=== PATIENT | male | born 1975 | race Caucasian/White ===

== ENCOUNTER 2019-03-24 02:17 | Inpatient (IN) ==
--- OUTSIDE RECORDS SUMMARY | 2019-03-24 04:52 | External Medical Summary | Continuity of Care Document ---
:1975 Author Name Aba Schreiber, Provider Address Unavailable Unavailable , Care Team Providers Name Role Phone David [email or web address] [email or web address] Derrick Mendoza PA-C Unavailable [email or web address] BAYRON VELARDE Unavailable Unavailable Unavailable Unavailable Unavailable Problems Candidiasis of mouth (112.0) (B37.0) Asthma, moderate persistent (493.90) (J45.40) Shortness of breath (786.05) (R06.02) Acute sinusitis (461.9) (J01.90) Acute bronchitis (466.0) (J20.9) Asthma (493.90) (J45.909) History of allergy (V15.09) (Z88.9) Earache (388.70) (H92.09) Chronic infection of sinus (473.9) (J32.9) Allergies and Adverse Reactions No Known Drug Allergies (Allergy) Medications Remeron 15 MG Oral Tablet; TAKE 1 TABLET AT BEDTIME. Start: 10-Nov-2018 Quantity: 15 Refills: 5 Breo Ellipta 200-25 MCG/INH Inhalation A erosol Powder Breath Activated; INHALE 1 PUFFS Daily Candie Castaneda Start: 11-Feb-2019 Quantity: 2 28 Inhaler Pack Refills: 0 predniSONE 10 MG Oral Tablet; Take 4 pil ls daily for 2 days, then 3 pills daily for 2 days, then 2 pills daily for 2 days, then 1 pill daily for 2 days. EMETERIO Mendoza Start: 08-Jan-2019 Quantity: 20 Refills: 2 Fluconazole 200 MG Oral Tablet; TAKE 1 TABLET TWICE DAILY. EMETERIO Rivero Start: 21-Jan-2019 Quantity: 28 Refills: 0 Ipratropium-Albuterol 0.5-2.5 (3) MG/3ML Inhalation Solution; USE 1 UNIT DOSE IN NEBULIZER 4 TIMES DAILY. EMETERIO Mendoza Start: 21-Jan-2019 Quantity: 2 60 x 3 ML Plas Cont Refills: 5 Clotrimazole 10 MG Mouth/Throat Jose L; ALLOW 1 TO DISSOLVE SLOWLY IN MOUTH 5 TIMES DAILY DIRECTED. EMETERIO Mendoza Start: 21-Jan-2019 Quantity: 50 Refills: 2 Nystatin [id number] UNIT/ML Mouth/Throat Lola pension; SWISH AND SWALLOW 6ML 4 TIMES DAILY. EMETERIO Mendoza Start: 18-Feb-2019 Quantity: 240 Refills: 0 Ventolin HFA 108 (90 Base) MCG/ACT Inhal ation Aerosol Solution; INHALE 2 PUFFS BY MOUTH EVERY 4 HOURS NEEDED Candie Castaneda Start: 22-Dec-2013 Quantity: 1 18 GM Inhaler Refills: 5 Stiolto Respimat 2.5-2.5 MCG/ACT Inhalation Aerosol So lution; 2 puffs daily. EMETERIO Mendoza Start: 08-Jan-2019 Quantity: 1 4 GM Inhaler Refills: 5 Procedures History of Arm Incision Status: Complete d History of Oral Surgery Tooth Extraction Status: Completed Immunizations Immunizations not documented Family History Unknown Family Member Family history of Heart Disease (V17.49) Status: Active Comments: Family History Social History - Smoking Status Former smoker Plan of Treatment Planned Encounters Appointment; Derrick Mendoza PA-C Start: 02-Apr-2019 15:30 Re quest Planned Observations Planned Goals not documented Results No Known Results Results not documented Encounters Appointment; Nani Razo M.D. 27-Feb-2019 11:00 Encounter Diagnosis: Problem not documented Appointment; David Castaneda M.D. 11-Feb-2019 15:30 Encounter Diagnosis: Problem not documented Appointment; David Castaneda M.D. 03-Feb-2019 9:00 Encounter Diagnosis: Problem not documented Appointment; Derrick Mendoza PA-C 21-Jan-2019 11:15 Encounter Diagnosis: Problem not documented Appointment; Derrick Mendoza PA-C 08-Jan-2019 10:30 Encounter Diagnosis: Problem not documented Appointment; Rosemarie King CRNP 10-Nov-2018 13:30 Encounter Diagnosis: Problem not documented Appointment; Derrick Mendoza PA-C 18-Feb-2018 9:00 Encounter Diagnosis: Problem not documented Appointment; Derrick Mendoza PA-C 13-[place]-2019 15:30 Encounter Diagnosis: Problem not documented
[2019-03-24] MEDS ORDERED: CEFEPIME 2,000 MG in SYRINGE 7.5 ML IV SCH (06:05)
[2019-03-24] MEDS ORDERED: NITROGLYCERIN SL 0.4 MG/TAB TAB SL PRN (06:05)
[2019-03-24] MEDS ORDERED: ONDANSETRON INJ 2 MG/ML 2 ML VIAL IV PRN (06:05)
[2019-03-24] MEDS: ACETAMINOPHEN 325 MG TAB PO PRN (06:21)
[2019-03-24] MEDS: HYDROmorphone INJ 0.5 MG/0.5 ML SYR IV PRN ×5 (06:27→20:33)
[2019-03-24] MEDS: SODIUM CHLORIDE 0.9% 1000ML 1,000 ML IV SCH ×2 (06:27→18:54)
[2019-03-24] MEDS: DOXYCYCLINE HYCLATE 100 MG in DEXTROSE 5% 100 ML IV SCH ×2 (06:47→19:41)
[2019-03-24] MEDS: PATIENT'S HEIGHT AND/OR WEIGHT NEEDED SCH ×3 (07:28→09:40)
--- NOTE | 2019-03-24 07:51 | History and Physical Report ---
DATE OF ADMISSION: 03/24/2019 CHIEF COMPLAINT: Severe headache. HISTORY OF PRESENT ILLNESS: This is a 44-year-old male with past medical history significant for asthma, moderate, persistent, history of thrush in the past, was transferred from the [facility] because of severe headache. The patient noticed since last Saturday evening he was having severe headaches. He went to the [facility] 3 times since then. In the shower,on Saturday he noticed he thought a bug bite on his left third toe. There was some whitish head on it, he tried to drain it, but nothing came out and says since then he is having severe headache. He thought at home he had temperature of 103, but he took Tylenol and went to [place] and the temperature was 99. Initially, they gave pain medication and it helped and he went home, and within a few hours, he went back to the hospital again. At that time, CT of the head was done which was unremarkable. Labs were unremarkable. He was sent back home on po antibiotics.. Last night again, he went back to the [facility] with same complaints. There was no neck stiffness, no pain in the neck. But having severe right ear pain.Again, a CT of the head with contrast was done which was unremarkable.He also complains of some epigastric abdominal pain. CT of the abdomen and pelvis was also done which were unremarkable. Lactic acid was normal. Temperature was 99. Vitals were stable. All the labs were unremarkable, so at that time they thought he needs neurology evaluation and he was sent to [facility]. The patient has a severe headache and has photophobia, nausea and epigastric abdominal discomfort. Denies any cough, no blurred vision, has right earache, no runny nose, no sore throat, no difficulty swallowing. Appetite is not good since last 1 or 2 days. No diarrhea, no constipation, no blood in the stools, no black stools. No burning micturition, no hematuria, no swelling in the legs. He has very mild erythematous change in the left third toe. Requesting for pain medications. Neck is supple. He says this year, he has 3 tick bites. Last was 1 month ago. At that time, he checked for Lyme, it was negative. He says Lyme screen was done in the [facility], but the results were not back. ALLERGIES: TO POLLEN. PAST MEDICAL HISTORY: As mentioned above. PAST SURGICAL HISTORY: EGDs, oral surgery for tooth extraction, distal radius fracture closed. MEDICATIONS: Albuterol p.r.n., Breo Ellipta inhalation daily, Flonase daily, Xyzal oral daily. FAMILY HISTORY: Significant for uncle had colon cancer at age of 60. Uncle has diabetes. Maternal grandfather has SD, CABG. SOCIAL HISTORY: Single, former smoker, started in 2003. Smoked 0.1 pack a day for 5 years. Alcohol, 2.5 ounce total alcohol per week. No drug use. REVIEW OF SYMPTOMS: As per HPI. Rest of review of symptoms is negative. PHYSICAL EXAMINATION: GENERAL: The patient is moderate build, not in acute distress, seemed to be in pain. VITAL SIGNS: Temperature 36.8, pulse 55, respiratory rate 18, blood pressure 130/83, oxygen 97% room air. HEENT: No pallor, no icterus. Pupils equal, round, and reactive.Right ear Auditory canal erythematous and friable tissue? NECK: No JVD, no neck masses, no carotid bruits. Neck is supple. CARDIOVASCULAR: S1, S2 heard, regular rate and rhythm. No murmur, no gallop. RESPIRATORY SYSTEM: Normal AP diameter. No accessory muscle use. No wheezing, no crackles. ABDOMEN: Mildly positive tenderness, no guarding, no rigidity. No distention. CENTRAL NERVOUS SYSTEM: Cranial nerves II-XII grossly intact. Nonfocal. EXTREMITIES: No edema, very mild erythema involving medial aspect of left third toe.. LABORATORY DATA: Labs done at [facility] show sodium 136, potassium 3.8, chloride 100, bicarbonate 23, BUN 15, creatinine 1.3, serum glucose 112, calcium 9.2, total bilirubin 0.5. Aminotransferase is 62. Alkaline phosphatase is 94. Lactic acid 2.1, but repeat lactic acid is 1.0. Prothrombin time 13.2, INR 1.1, amylase 40, lipase 52, lipase 95. Urine drug screen negative except for marijuana. WBC 9.8, hemoglobin 15.4, hematocrit 45.3, platelets 153. Rapid flu test negative. Urinalysis negative. CT of abdomen and pelvis, unremarkable as per report. ASSESSMENT AND PLAN: This is 44-year-old male who presents with severe intractable headaches. 1. Severe intractable headache. questionable fever. Photophobia and nausea. Hemodynamically stable. Labs were okay done at [facility]. CT of the head was unremarkable as per report, but he was transferred here for neurology evaluation. The patient is having photophobia, some nausea. He thinks he had 3 tick bites this year and last one is one month ago and initial Lyme screen was negative and he thought he had a bug bite in his third left toe. We will again do Lyme screen. We will follow the CBC, CMP, and lactic acid. We will place him on IV fluids, empirically start him on IV doxycycline and IV Rocephin.. MRI and MRA of the head and consult neuro for further recommendations. Pain control.No obvious meningeal signs. Will follow cultures.LP as per neurology. 2. Right ear infection. Antibiotics as above. Consult ENT. 2. Asthma, home inhalers. 3. Deep venous thrombosis prophylaxis, SCDs for now. 4. Disposition: Close monitoring in the med/surg tele. Level 1 full code. MTDD
[2019-03-24] MEDS ORDERED: GADOBUTROL 65ML VIAL IV PRN (08:04)
--- NOTE | 2019-03-24 08:08 | Magnetic Resonance Report ---
MR angio head wo con CLINICAL HISTORY: 44 years-old Male presenting with migraines for 3 days, possible insect bite, sever e nausea and vomiting. TECHNIQUE: MR angiography of the head was performed without the use of intravenous contrast using 3-D [id number] technique. 3-D volumetric and/or maximum intensity projection (MIP) images were subse quently reconstructed for review. IV contrast: None. COMPARISON: None. FINDINGS: Localizer images: Unremarkable. Anterior circulation: Intracranial portions of the internal carotid arteries patent to the level of t he termini. Anterior cerebral arteries patent with a trifurcation variant pattern. Middle cerebral ar teries patent. Anterior communicating artery patent. Posterior circulation: Left dominant vertebral artery. Intradural portions of the vertebral arteries patent. Posterior inferior cerebellar arteries patent. Basilar artery patent. Anterior inferior cereb ellar arteries poorly visualized. Superior cerebellar arteries patent. Posterior cerebral arteries pa tent. Right posterior communicating artery (P-comm) patent. Left P-comm hypoplastic or aplastic. IMPRESSION: 1. No significant stenosis, aneurysm, or focal vessel occlusion. Electronically signed by: Janes Whittaker M.D. 03/24/2019 8:06 AM
--- NOTE | 2019-03-24 08:31 | Magnetic Resonance Report ---
MR brain wo/w con HISTORY: 44 years-old Male severe headache, acute headache. COMPARISON: MRA of the head of same day. TECHNIQUE: Multiplanar multisequence MRI of the brain was obtained both with and without the use of 8 .3 mL Gadavist. FINDINGS: Large srruy-cm-dwyy lead nitrate processor localizer images demonstrate no gross extracranial abnormality. There is no restricted diffusion to suggest acute or subacute infarction. There is no acute intracranial hemorrh age, midline shift, abnormal extra-axial collections, hydrocephalus or intracranial mass. There are n o significant T2/FLAIR signal abnormalities about the brain parenchyma. Midline structures including the corpus callosum, brainstem, optic chiasm, pituitary and pineal glands are unremarkable on the sag ittal T1 series. No cerebellar tonsillar herniation. No abnormal intra-axial or extra-axial enhanceme nt. Major flow voids at the level of the skull base appear to be patent. Mild to moderate polypoid mucosa l thickening of the maxillary and frontal sinuses. Moderate mucosal thickening of the ethmoid air lucy ls with complete opacification of the left sphenoid sinus. Incidental note is made of disconjugate ga ze. The soft tissues and calvarium are unremarkable. Trace mastoid effusions. IMPRESSION: 1. No acute intracranial abnormality identified. 2. No abnormal enhancement. 3. Paranasal sinus disease as above. The above report was generated using voice recognition software. It may contain grammatical, syntax o r spelling errors. Dictated: 03/24/2019 8:22 AM Transcribed: 03/24/2019 8:30 AM Antionette [id number] Electronically signed by: Renard Llanos M.D. 03/24/2019 9:20 AM
[2019-03-24] MEDS ORDERED: cefTRIAXone SODIUM 2,000 MG in DEXTROSE 5% 50 ML IV SCH (09:00)
[2019-03-24] MEDS ORDERED: FLUTICASONE PROPIONATE NA SPR 16 GM BTL NAE SCH (09:00)
[2019-03-24 09:25] LABS: Basophils # (auto) 0.04 K/uL (0-0.2); Basophils % (auto) 0.7 %; Eosinophils % (auto) 1.7 %; Hematocrit (blood only) 38.4 % (42-52); Hemoglobin 13.7 g/dL (14.0-18.0); Immature Granulocytes # (auto) 0.01 K/uL (0.00-0.02); Immature Granulocytes % (auto) 0.2 %; Lymphocytes # (auto) 2.56 K/uL (1.2-3.4); Lymphocytes % (auto) 43.2 %; Mean Corpuscular Hgb Conc 35.7 g/dL (32-36); Mean Corpuscular Volume 83.7 fL (80-100); Mean Platelet Volume 11.5 fL (7.4-10.4); Monocytes # (auto) 0.85 K/uL (0.11-0.59); Monocytes % (auto) 14.4 %; Neutrophils # (auto) 2.36 K/uL (1.4-6.5); Neutrophils % (auto) 39.8 %; Platelet Count 117 K/uL (130-400); RDW Coefficient of Variation 12.6 % (11.5-14.5); RDW Standard Deviation 38.1 fL (36.4-46.3); Red Blood Count 4.59 M/uL (4.7-6.1); White Blood Count 5.92 K/uL (4.8-10.8)
[2019-03-24 09:39] LABS: INR 1.1 (0.9-1.1); Partial Thromboplastin Ratio 1.2; Partial Thromboplastin Time 31.6 Seconds (21.0-31.0)
[2019-03-24] MEDS: LORATADINE 10 MG TAB PO SCH (09:45)
[2019-03-24] MEDS: FAMOTIDINE 20 MG in SYRINGE 3 ML IV SCH ×2 (09:45→21:25)
[2019-03-24 09:51] LABS: Albumin Level 3.2 gm/dl (3.4-5.0); BUN Creatinine Ratio 15.9 (10-20); Calcium 8.4 mg/dl (8.5-10.1); Creatinine Clr Calc Pharmacy 126.5 ml/min; Est GFR (African American) 127.1; Est GFR (Non-African American) 109.6; Magnesium 2.3 mg/dl (1.8-2.4); Potassium 3.4 mmol/L (3.5-5.1)
[2019-03-24 09:53] LABS: Bilirubin,Total 0.5 mg/dl (0.2-1); Globulin 3.2 gm/dl (2.5-4.0); Total Protein 6.4 gm/dl (6.4-8.2)
--- NOTE | 2019-03-24 10:04 | XRay Report ---
XR chest 1V portable CLINICAL HISTORY: 44 years-old Male presenting with fever. TECHNIQUE: Portable upright AP view of the chest was obtained. COMPARISON: 02/03/2019 and CTA chest from 2012. FINDINGS: Cardiomediastinal silhouette normal. Lungs are hyperinflated. No focal opacity. No pleural effusion o r pneumothorax. Posterior matter deformity of the left clavicle suspected. Multiple old left rib frac tures noted. Upper abdomen normal. IMPRESSION: 1. Findings suggest emphysema. No focal infiltrate to suggest pneumonia. 2. Abnormal appearance of the left clavicle, which may be posttraumatic in etiology. The appearance is altered from prior CTA in 2012. This may suggest re-injury among other etiologies. Correlate clini handy. Electronically signed by: Janes Whittaker M.D. 03/24/2019 10:03 AM
[2019-03-24 10:15] LABS: Lyme Ab IgG w/WB Rflx Negative (Negative)
[2019-03-24 10:34] LABS: Lyme Ab IgM w/WB Rflx Positive (Negative)
--- NOTE | 2019-03-24 14:33 | Infectious Disease Consult ---
Date of Consultation March 24, 2019 Assessment & Plan (1) Headache: continue abx, agree with LP. follow cultures. suggest routine cultue, csf lyme pcr, rpr, csf vdrl. will follow. History of Present Illness Attending Physician: Micheal Valentine MD pt transferred from [facility] due to persistent hays. has been on ER multiple times for same, now transferred for neuro eval. In ER underwent MRI/MRA brain, normal. cxr with empysema. no cough, some sinus congestion, saw ENT and neuro earlier today, for LP. noted tick bites this year. lyme testing done recently, does not know results. started on ctx and doxy here, tolerating well. no f/c. still with hays, states pain meds not helping, no nuchal rigidity. wbc nml. afebile. In ER lyme screen + wb pending. platelets 117, LFTs normal. no rashes, no joint swelling, no myalgias, no cp, sob, cough, no n/v/d/abd pain, no gu symptoms. family at bedside. blood cultures pending. Allergies Allergy/AdvReac Type Severity Reaction Status Date / Time No Known Drug Allergies Allergy n/a Verified 02/03/19 08:20 Home Medications Home Medications Medication Instructions Recorded Confirmed Type albuterol sulfate 2 puff INHALATION Q6H PRN 02/02/19 02/03/19 History Breo Ellipta 1 puff INHALATION DAILY 03/24/19 03/24/19 History Claritin 10 mg PO DAILY 03/24/19 03/24/19 History Flonase Allergy Relief 1 spray NA DAILY 03/24/19 03/24/19 History Patient History Medical History Asthma (Acute) No significant past surgical history (Acute) Social History Preferred Language: Sami Communication Ability: Effective 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 Required: No Beliefs That Will Affect Care: None Current Living Situation: Alone Other Information That Helps Us Care for You: No Feels Safe at Home: Yes Safety Concerns: Feels Safe At This Time Smoking Status: Former smoker Second Hand Exposure: No Hx Alcohol Use: Yes Alcohol type: beer Hx Substance Use: No Review of Systems Review of Systems: All systems reviewed & are unremarkable except as noted in HPI & below Physical Exam Constitutional: WD/WN, vitals as above Eyes: PERRL, conjunctivae normal, anicteric sclerae ENMT: external ear and nose normal, oropharynx normal Neck: normal visual inspection no nuchal rigidity Respiratory: normal respiratory effort, lungs clear to auscultation Cardiovascular: RRR, no murmur, no edema Gastrointestinal (Abdomen): normal bowel sounds, soft, nontender, no hepatosplenomegaly Musculoskeletal: no cyanosis or clubbing, extremities motor strength 5/5 Skin: no rashes, warm and dry Psychiatric: A+Ox3, euthymic affect Results & Data Vital Signs (Past 12 Hours) Vital Signs Temp Pulse Pulse Resp BP BP Pulse Ox 03/24/19 12:00 36.6 C 57 L 18 150/97 H 98 03/24/19 07:38 53 L 03/24/19 07:05 36.9 C 51 L 16 155/80 H 99 03/24/19 05:35 55 L 03/24/19 05:10 36.8 C 58 L 18 130/83 97
--- NOTE | 2019-03-24 15:13 | Neurology Consultation ---
Date of Consultation March 24, 2019 Assessment & Plan (1) Headache: 1. ID consult for ongoing headache-Lyme presumptively + 2. LP - with CBC with diff, cell count, lyme, routine cultue, pcr, rpr, csf vdrl. opening and closing pressure 3. depakote IV 500 mg x 8 doses to break headache 4. motrin and NSAIDS should be held until after LP 5. decrease use of narcotic when able not optimal treatment for migraines 6. LP- tomorrow - flat for 2 hours after procedure Supervising Physician Co-Signing Physician Notes I have seen and discussed above patient with Dr Micheal Burr, neurology I have seen this young man today and reviewed the above note and discussed the case with Huong Shell PA-C. I suspect this man does have a meningitis likely aseptic and likely viral but there are some questions appropriately raised about whether this might be Lyme disease based on the early testing results and I agree totally with the current plans to treat him with Rocephin, proceed to a CSF analysis and to proceed after that with appropriate antibiotic treatment depending on the results. He has been seen by ear nose and throat for and the issue of an ear infection is apparently been laid to rest and the MRI scan really does not show any evidence compatible with a significant process involving the mastoids nor anything involving meninges but the lack of meningeal enhancement certainly would not exclude a low-grade viral meningitis Neurology is going to attempt to treat his headaches with some Depakote in hopes that any vascular component will respond like a migraine might We will check back with him tomorrow. Micheal Burr MD History of Present Illness Reason for Consultation: severe headaches Requesting Physician: Micheal Valentine MD Attending Physician: Micheal Valentine MD History of Present Illness Bill is a 44 year old male with PMH asthma, moderate, persistent, history of thrush in the past, was transferred from the [facility] because of severe headache. He states the headaches started last Saturday evening and are severe headaches. He does not have a history of migraine but did have several [facility] in the past with modest headaches. He went to the [facility] 3 times He noticed he had a bug bite on his left third toe it is still swollen and painful but is better. When he noted the bug bite that is when the severe headache started. the headaches are around his temp area, behind his eyes, and upper teeth is a pressure. He thought at home he had temperature of 103, but he took Tylenol and went to [place] and the temperature was 99. They gave pain medication and it helped and he went home, and within a few hours, he went back to the hospital again and a CT the head was done which was unremarkable. He was sent back home on po antibiotics.. Last night again, he went back to the [facility] with same complaints. There was no neck stiffness, no pain in the neck. He is having severe right ear pain and pain in his upper teeth and photophobia, nausea and epigastric abdominal discomfort. He has had 3 tick bites in the past last one was about a month ago. A lyme screen at that time was negative. denies neck pain, SOB, abdominal pain, one sided weakness, numbness tingling, N, V, vision changes. Allergies Allergy/AdvReac Type Severity Reaction Status Date / Time No Known Drug Allergies Allergy n/a Verified 02/03/19 08:20 Home Medications Home Medications Medication Instructions Recorded Confirmed Type albuterol sulfate 2 puff INHALATION Q6H PRN 02/02/19 02/03/19 History Breo Ellipta 1 puff INHALATION DAILY 03/24/19 03/24/19 History Claritin 10 mg PO DAILY 03/24/19 03/24/19 History Flonase Allergy Relief 1 spray NA DAILY 03/24/19 03/24/19 History Patient History Medical History Asthma (Acute) No significant past surgical history (Acute) Social History Preferred Language: Lao Communication Ability: Effective Service Parts Coordinator Required: No Beliefs That Will Affect Care: None Current Living Situation: Alone Other Information That Helps Us Care for You: No Feels Safe at Home: Yes Safety Concerns: Feels Safe At This Time Smoking Status: Former smoker Second Hand Exposure: No Hx Alcohol Use: Yes Alcohol type: beer Hx Substance Use: No Physical Exam Physical Exam: Physical Exam: Constitutional: appearance nourished, healthy Ears, Nose, Mouth and Throat: mucous membranes moist, no injection and skin normal, eyes normal Cardiovascular: normal S-1 and S-2 and regular rate and rhythm Respiratory: clear to auscultation (CTA) and no rales Musculoskeletal: no peripheral edema and good distal pulses Skin: no stigmata of neurocutaneous disease noted and normal and intact Eyes: extraocular muscles intact (EOMI) and pupils equal, round and reactive to light (PERRL) NEUROLOGIC EXAMINATION: Mental status: Alert and interactive Oriented to full date and location Oriented to person Speech fluent with no evidence of aphasia Cranial Nerves smile eye brow raise symmetric, tongue midline Reflexes: Deep tendon reflexes were symmetrical and graded 2/5. Sensory: intact to light and cool touch Coordination: finger to nose no bi pass Gait/Stance: Posture sitting up in bed Motor: Negative for pronator drift of out stretched arms with eyes closed. Strength: biceps triceps hand leaflet or newspaper deliverer 5/5 bilaterally, hip flex patellar plantar flex ext 5/5 bilaterally Results & Data Vital Signs (Past 12 Hours) Vital Signs Temp Pulse Pulse Resp BP BP Pulse Ox 03/24/19 12:00 36.6 C 57 L 18 150/97 H 98 03/24/19 07:38 53 L 03/24/19 07:05 36.9 C 51 L 16 155/80 H 99 03/24/19 05:35 55 L 03/24/19 05:10 36.8 C 58 L 18 130/83 97 Laboratory Results Abnormal lab results 03/24/19 03/24/19 03/24/19 Range/Units 09:07 09:07 09:07 RBC 4.59 L (4.7-6.1) M/uL Hgb 13.7 L (14.0-18.0) g/dL Hct 38.4 L (42-52) % Plt Count 117 L (130-400) K/uL MPV 11.5 H (7.4-10.4) fL [place] # (Auto) 0.85 H (0.11-0.59) K/uL APTT 31.6 H (21.0-31.0) Seconds Potassium 3.4 L (3.5-5.1) mmol/L Calcium 8.4 L (8.5-10.1) mg/dl AST 45 H (15-37) U/L Albumin 3.2 L (3.4-5.0) gm/dl Lyme Disease IgM Ab (Negative) 03/24/19 Range/Units 09:07 RBC (4.7-6.1) M/uL Hgb (14.0-18.0) g/dL Hct (42-52) % Plt Count (130-400) K/uL MPV (7.4-10.4) fL [place] # (Auto) (0.11-0.59) K/uL APTT (21.0-31.0) Seconds Potassium (3.5-5.1) mmol/L Calcium (8.5-10.1) mg/dl AST (15-37) U/L Albumin (3.4-5.0) gm/dl Lyme Disease IgM Ab Positive A (Negative) Diagnostic Findings MRI brain-No acute intracranial abnormality identified. No abnormal enhancement. Paranasal sinus disease as above. CXR- Findings suggest emphysema. No focal infiltrate to suggest pneumonia. Abnormal appearance of the left clavicle, which may be posttraumatic in etiology. The appearance is altered from prior CTA in 2011. This may suggest re- injury among other etiologies. Correlate clinically. MRA head- No significant stenosis, aneurysm, or focal vessel occlusion.
--- NOTE | 2019-03-24 17:31 | Hospitalist Progress Note ---
Date of Service March 24, 2019 Assessment & Plan (1) Fever: Febrile illness with associated headache. Recent tick bite. Lyme IgM screen +. Western blot pending. Consider co-infection with anaplasma. Neuro & ID consulted. Check anaplasma PCR and peripheral smear for WBC inclusions. Continue ceftriaxone and doxycycline. (2) Thrombocytopenia: Probably secondary to infectious process, perhaps anaplasmosis. Follow. (3) Sinusitis: ENT consulted because of right ear pain. No apparent infection or foreign body. Sinusitis noted on MRI scan. Antibiotic therapy, nasal steroid, systemic steroid recommended. Best to avoid systemic steroids until infectious process has been evaluated further and is improving. Current antibiotic coverage for suspected tickborne disease not ideal for sinusitis. We will add amoxicillin/clavulanic acid. Outpatient follow-up with ENT. (4) DVT prophylaxis: SCD's ordered. Ambulate. (5) Discharge planning issues: Anticipated discharge to home. Family Medicine follow-up with Dr. Hernesto Pineda. ENT follow-up with Dr. Clayton. Subjective Recheck for fever, headahce. Patient seen in their room around 1400. Mother visiting. Admitted this morning with fever and headache. Recent tick bites without rash. Persistent headache and photophobia. Nauseated, anorexic. Physical Exam Constitutional: no acute distress ENMT: Ears: no TM abnormality (no foreign bodies in external canals) Respiratory: normal respiratory effort, lungs clear to auscultation Cardiovascular: RRR, no murmur, no edema Gastrointestinal (Abdomen): normal bowel sounds, soft, nontender, no hepatosplenomegaly Musculoskeletal: Head/Neck/Chest: neck supple Skin: no rashes, warm and dry Psychiatric: Orientation: alert and oriented x 3 Results & Data Vital Signs (Past 12 Hours) Vital Signs Temp Pulse Pulse Resp BP BP Pulse Ox 03/24/19 16:35 37.2 C 03/24/19 15:00 36.9 C 59 L 18 157/93 H 98 03/24/19 12:00 36.6 C 57 L 18 150/97 H 98 03/24/19 07:38 53 L 03/24/19 07:05 36.9 C 51 L 16 155/80 H 99 03/24/19 05:35 55 L Laboratory Results Laboratory Results - last 24 hr 03/24/19 03/24/19 03/24/19 09:07 09:07 09:07 WBC 5.92 RBC 4.59 L Hgb 13.7 L Hct 38.4 L MCV 83.7 MCH 29.8 MCHC 35.7 RDW Std Deviation 38.1 RDW Coeff of Yadira 12.6 Plt Count 117 L MPV 11.5 H Immature Gran % (Auto) 0.2 Neut % (Auto) 39.8 Lymph % (Auto) 43.2 Ford % (Auto) 14.4 Eos % (Auto) 1.7 Baso % (Auto) 0.7 Immature Gran # (Auto) 0.01 Neut # (Auto) 2.36 Lymph # (Auto) 2.56 Ford # (Auto) 0.85 H Eos # (Auto) 0.10 Baso # (Auto) 0.04 PT 11.0 INR 1.1 APTT 31.6 H PTT Ratio 1.2 Sodium 138 Potassium 3.4 L Chloride 106 Carbon Dioxide 25 Anion Gap 7.0 BUN 13 Creatinine 0.81 Est Cr Clr Drug Dosing 126.5 Est GFR ( Amer) 127.1 Est GFR (Non-Af Amer) 109.6 BUN/Creatinine Ratio 15.9 Glucose 99 Lactate Calcium 8.4 L Magnesium 2.3 Total Bilirubin 0.5 AST 45 H ALT 63 Alkaline Phosphatase 90 Total Protein 6.4 Albumin 3.2 L Globulin 3.2 Albumin/Globulin Ratio 1.0 Lyme Disease IgG Ab Lyme IgG (Western Blot) Lyme IgG 18 kDa Band Lyme IgG 23 kDa Band Lyme IgG 28 kDa Band Lyme IgG 30 kDa Band Lyme IgG 39 kDa Band Lyme IgG 41 kDa Band Lyme IgG 45 kDa Band Lyme IgG 58 kDa Band Lyme IgG 66 kDa Band Lyme IgG 93 kDa Band Lyme Disease IgM Ab Lyme IgM (Western Blot) Lyme IgM 23 kDa Band Lyme IgM 39 kDa Band Lyme IgM 41 kDa Band 03/24/19 03/24/19 03/24/19 09:07 09:07 09:07 WBC RBC Hgb Hct MCV MCH MCHC RDW Std Deviation RDW Coeff of Yadira Plt Count MPV Immature Gran % (Auto) Neut % (Auto) Lymph % (Auto) Ford % (Auto) Eos % (Auto) Baso % (Auto) Immature Gran # (Auto) Neut # (Auto) Lymph # (Auto) Ford # (Auto) Eos # (Auto) Baso # (Auto) PT INR APTT PTT Ratio Sodium Potassium Chloride Carbon Dioxide Anion Gap BUN Creatinine Est Cr Clr Drug Dosing Est GFR ( Amer) Est GFR (Non-Af Amer) BUN/Creatinine Ratio Glucose Lactate 1.0 Calcium Magnesium Total Bilirubin AST ALT Alkaline Phosphatase Total Protein Albumin Globulin Albumin/Globulin Ratio Lyme Disease IgG Ab Negative Lyme IgG (Western Blot) Pending Lyme IgG 18 kDa Band Pending Lyme IgG 23 kDa Band Pending Lyme IgG 28 kDa Band Pending Lyme IgG 30 kDa Band Pending Lyme IgG 39 kDa Band Pending Lyme IgG 41 kDa Band Pending Lyme IgG 45 kDa Band Pending Lyme IgG 58 kDa Band Pending Lyme IgG 66 kDa Band Pending Lyme IgG 93 kDa Band Pending Lyme Disease IgM Ab Positive A Lyme IgM (Western Blot) Pending Lyme IgM 23 kDa Band Pending Lyme IgM 39 kDa Band Pending Lyme IgM 41 kDa Band Pending
[2019-03-24] MEDS: VALPROATE SOD 500 MG in DEXTROSE 5% 50 ML IV SCH (18:02)
[2019-03-24] MEDS ORDERED: KETOROLAC 30 MG/ML VIAL IV ONE (20:58)
[2019-03-24] MEDS ORDERED: VANCOMYCIN CONSULT ACTIVE PRN (21:16)
[2019-03-24] MEDS ORDERED: VANCOMYCIN HCL 2,000 MG in SODIUM CHLORIDE 0.9% 500 ML IV ONE (21:45)
--- NOTE | 2019-03-24 21:50 | Consultation Report ---
DATE OF CONSULTATION: 03/24/2019 [facility] INPATIENT CONSULTATION I have been asked by Dr. Koroma to evaluate this patient with "right ear severe infection. Foreign body ?" HISTORY OF PRESENT ILLNESS: The patient is a 44-year-old male who was admitted to [facility] on 03/24/2019 after presenting to the Emergency Room as a transfer from [facility]. Since this past Saturday, the patient has had a severe headache with associated photophobia, nausea, but no vomiting and went to [facility] several times since Saturday evening and had a workup that reportedly included a CT scan of the head which was normal. He had a history of a possible tick bite and reportedly had a Lyme titer that was negative. Because he had intractable headache, they referred him to [facility] since they do not have a neurologist on staff. Reportedly, he was told he had a foreign body within his right ear and that might have been an insect and he underwent several flushings at the [facility]. Also, according to Dr. Koroma's note there is erythema in the right external auditory canal and possible friable tissue. The patient does have some mild right otalgia, but his main concern is this intractable headache which he describes as being frontal, temporal, and also pain in the upper molar region. He has a history of recurrent acute and chronic sinusitis and underwent endoscopic sinus surgery by Dr. Engel in the past. He has also seen Dr. Salomon in [place] in 2016, who recommended image guided sinus surgery, but the patient never had that surgery with her. The patient is followed by Dr. Castaneda in pulmonary medicine for his moderately persistent asthma. The patient is currently on ceftriaxone and doxycycline for presumed infection. However, he has a normal white blood cell count and has been afebrile throughout his hospital stay so far. He denies any sinus pain or pressure, purulent rhinorrhea, postnasal drip, lightheadedness, dizziness, shortness of breath, or chest pain. ALLERGIES: No known drug allergies. CURRENT MEDICATIONS: Doxycycline, ceftriaxone, famotidine, Flonase, loratadine. PAST MEDICAL HISTORY: 1. As above. 2. Reflux. PAST SURGICAL HISTORY: 1. As above. 2. Status post multiple EGDs. 3. Status post dental extractions. 4. Status post closed reduction of distal radius fracture. FAMILY HISTORY: Noncontributory. No bleeding disorders or malignant hyperthermia. SOCIAL HISTORY: The patient is single. He is a former smoker with a less than 5-pack-year smoking history. He drinks alcohol but not in excess. There is no illicit drug use. REVIEW OF SYSTEMS: The patient has the above-mentioned headache, photophobia, nausea, and right otalgia. He denies hearing loss, tinnitus, dizziness, vertigo, shortness of breath, or chest pain. PHYSICAL EXAMINATION: GENERAL: This is a middle-aged adult white male in no acute distress who is wearing a blindfold due to his photophobia. HEENT: Bilateral external auditory canals are mildly narrow with no erythema and minimal cerumen. There is no foreign body other than a single hair within the right external auditory canal. Both tympanic membranes are clear and intact with no middle ear effusion and certainly no evidence of foreign body or infection. Nasal examination reveals mild right septal deviation and left greater than right inferior turbinate hypertrophy without any polyposis or purulence. Oral cavity and oropharyngeal examination reveals no evidence of oral thrush. The patient has a tendency towards this with the steroid inhalers. He has no purulent postnasal drip. NECK: Reveals no lymphadenopathy or thyroid nodularity. NEUROLOGIC: The patient is awake and alert and oriented x3. Cranial nerves II-XII are grossly intact. IMAGING: The patient had an MRI of the brain which revealed complete opacification of the left sphenoid sinus, but also moderate mucosal thickening involving the bilateral ethmoid sinuses according to the report. Unfortunately, these films cannot be reviewed because the PACS system is not working. IMPRESSION AND RECOMMENDATIONS: No evidence of right ear infection, otitis externa, otitis media, or foreign body. I believe that his right otalgia is likely from his sinusitis which by the MRI report is complete opacification of the left sphenoid sinus and mild to moderate polypoid mucosal thickening involving the bilateral maxillary and ethmoid sinuses. I have recommended maximal medical therapy for his infection with a combination of antibiotics, steroids, nasal steroids, and short term Afrin. I would recommend switching his antibiotics to something that is better to cover acute and chronic sinusitis humble such as Unasyn while he is an inpatient and Augmentin when he is discharged as an outpatient. I would recommend IV steroids of 10 mg, Decadron 10 mg IV q. 8 hours while he is hospitalized and then a prednisone taper for him to be discharged with during the course of his antibiotic treatment which should last at least 2-4 weeks. I would recommend a posttreatment fusion CT scan of the sinuses in approximately 1 month and a followup appointment with me afterwards. In addition, I would increase his Flonase to 2 sprays in each nostril twice daily and would recommend adding Afrin nasal spray 2 sprays in each nostril 3 times a day for 3 days only. I will sign off on this consultation, but if you need any further assistance or if the patient's clinical condition worsens with fever and elevated white blood cell count, then please do not hesitate to contact me.
[2019-03-24] MEDS: cefTRIAXone SODIUM 2,000 MG in DEXTROSE 5% 50 ML IV SCH (22:01)
[2019-03-24] MEDS: ALBUTEROL HFA 8 GM INHALER INH PRN (22:02)
[2019-03-25] MEDS: SODIUM CHLORIDE 0.9% 1000ML 1,000 ML IV SCH ×2 (02:00→10:00)
[2019-03-25] MEDS: VALPROATE SOD 500 MG in DEXTROSE 5% 50 ML IV SCH ×3 (02:57→18:26)
[2019-03-25] MEDS ORDERED: OXYMETAZOLINE 0.05% 30 ML BTL ONE (03:53)
--- NOTE | 2019-03-25 04:37 | Pharmacy Report ---
Pharmacy Abx Initial Consult - Date of Service March 25, 2019 - Pharmacy Dosing Scope Date of Consult: 03/24/19 Consultation requested by: Pharmacy is consulted to initiate Vancomycin IV dosing therapy, order appropriate labs and adjust drug dose/frequency. - Subjective The patient is a 44 year old M admitted on 03/24/19 04:42 with severe headache. The patient had several visits to [facility] prior to admission at [facility]. It turns out he has had tick bites without rash. He is currently being treated with antibiotics for [employer], Skin and Sinusitis indications. He has Doxycycline PO on board for Lymes. He has LP scheduled for today and has both Rocephin (empi hali coverage for possible meningitis) and Vancomycin for cellulitis of foot. Dr. Valentine added Unasyn for his sinusitis to ensure complete coverage. Antibiotic regimen will be de-escalated NETO after LP results. - Objective Height: 5 ft 11 in Weight: 83.6 kg Vital Signs (Past 12hrs): Vital Signs Temp Pulse Pulse Resp BP BP Pulse Ox 03/25/19 03:00 57 L 03/24/19 23:00 37.0 C 49 L 18 141/89 H 99 03/24/19 19:51 161/94 H 164/92 H 03/24/19 19:00 37.3 C 66 171/103 H 163/99 H 95 03/24/19 16:35 37.2 C Lab Results (24hrs): Laboratory Tests (24 Hours) 03/24/19 03/24/19 09:07 09:07 WBC 5.92 Neut # (Auto) 2.36 Creatinine 0.81 Est Cr Clr Drug Dosing 126.5 Micro Results: 03/24/19 09:30 Aerobic Blood Culture - Pending Blood Anaerobic Blood Culture - Pending 03/24/19 09:07 Aerobic Blood Culture - Pending Blood Anaerobic Blood Culture - Pending - Assessment & Plan Assessment 44 year old M with possible meningitis/cellulitis of foot/leg Plan Vancomycin IV * Estimated PK Parameters: Vd 0.7 L/kg, Uzair 0.109 hr-1, t1/2 6.35 hr * Loading dose: 2000mg (24 mg/kg) * Maintenance dose: 1250 mg IV (15 mg/kg) every 8 hours * Goal trough level : 15 to 20 mcg/mL * Trough level ordered prior to 1200 dose on 03/26/19 Pharmacy will continue to follow and will adjust dose/frequency as necessary. Thank you.
[2019-03-25] MEDS: AMPICILLIN/SULBACTAM SOD 3,000 MG in 0.9 % SODIUM CHLORIDE 100 ML IV SCH ×3 (05:44→17:33)
[2019-03-25 08:16] LABS: Hematocrit (blood only) 37.8 % (42-52); Hemoglobin 13.6 g/dL (14.0-18.0); Mean Corpuscular Volume 84.4 fL (80-100); Mean Platelet Volume 11.4 fL (7.4-10.4); Platelet Count 127 K/uL (130-400); RDW Coefficient of Variation 12.6 % (11.5-14.5); RDW Standard Deviation 38.9 fL (36.4-46.3); Red Blood Count 4.48 M/uL (4.7-6.1); White Blood Count 4.89 K/uL (4.8-10.8)
[2019-03-25 08:44] LABS: BUN Creatinine Ratio 14.1 (10-20); Calcium 8.5 mg/dl (8.5-10.1); Est GFR (African American) 126.4; Est GFR (Non-African American) 109.1; Potassium 3.9 mmol/L (3.5-5.1)
[2019-03-25 08:51] LABS: ALC (manual) 2.72 K/uL (1.2-3.4); Basophils # (manual) 0.04 K/uL (0-0.2); Basophils % (manual) 0.9 %; Eosinophils # (manual) 0.13 K/uL (0-0.5); Eosinophils % (manual) 2.6 %; Lymphocytes # (manual) 1.78 K/uL (1.2-3.4); Lymphocytes % (manual) 36.5 %; Metamyelocytes # (manual) 0.04 K/uL (0-0); Metamyelocytes % (manual) 0.9 %; Monocytes % (manual) 6.1 %; Neutrophils % (manual) 33.9 %; Reactive Lymphocytes # (manual) 0.93 K/uL
[2019-03-25] MEDS: OXYMETAZOLINE 0.05% 30 ML BTL SCH ×3 (08:52→21:43)
[2019-03-25] MEDS: DOXYCYCLINE HYCLATE 100 MG CAP PO SCH ×2 (08:54→21:44)
--- NOTE | 2019-03-25 08:55 | Hospitalist Progress Note ---
Date of Service March 25, 2019 Assessment & Plan (1) Fever: Febrile illness with associated headache. Recent tick bite. Lyme IgM screen +. Western blot pending. -Check anaplasma PCR and peripheral smear for WBC inclusions. -For LP today- CBC with diff, cell count, Lymes , Routine culture, PCR, RPR, CSF VDRL, Pressures to rule out aspectic meningitis which is a possibility -Continue ceftriaxone and doxycycline- Day 2 -On IV Depakote 500 mg x 8 doses to break headache- has not received first dose yet -Neurology and ID on board- Appreciate inputs (2) Thrombocytopenia: -Probably secondary to infectious process -Follow anaplasmosis work up -Monitor (3) Sinusitis: ENT consulted because of right ear pain. No apparent infection or foreign body. Sinusitis noted on MRI scan - No mastoiditis. -Antibiotic therapy, nasal steroid, systemic steroid recommended. -Best to avoid systemic steroids until infectious process has been evaluated further and is improving. -Current antibiotic coverage for suspected tickborne disease not ideal for sinusitis, so added Unasyn by Dr Valentine on 03/24/19. Will wait for rest of the results before making changes. -Outpatient follow-up with ENT. (4) DVT prophylaxis: -SCD's ordered. -Ambulate. (5) Discharge planning issues: -Anticipated discharge to home. -Family Medicine follow-up with Dr. Hernesto Pineda. -ENT follow-up with Dr. Clayton. Subjective Patient is feeling a little better today. Headache has improved and tramadol helped. No fever since admission. No nausea, vomiting, focal weakness. No chest pain, shortness of breath, cough, rash. No prior history of migraines Physical Exam Constitutional: WD/WN, vitals as above Eyes: PERRL, conjunctivae normal, anicteric sclerae Neck: No neck rigidity Respiratory: normal respiratory effort, lungs clear to auscultation Cardiovascular: RRR, no murmur, no edema Gastrointestinal (Abdomen): normal bowel sounds, soft, nontender, no hepatosplenomegaly Neurologic: PERRL, EOMI, accommodation nl, no face palsy, no dysarthria CN's II-XI intact bilaterally and moves all extremities; no focal motor deficits Results & Data Vital Signs (Past 12 Hours) Vital Signs Temp Pulse Pulse Pulse Resp BP BP 03/25/19 07:29 48 L 03/25/19 06:57 36.5 C 48 L 18 161/83 H 03/25/19 04:00 36.6 C 55 L 18 159/88 H 03/25/19 03:00 57 L 03/24/19 23:00 37.0 C 49 L 18 141/89 H Pulse Ox 03/25/19 07:29 03/25/19 06:57 98 03/25/19 04:00 98 03/25/19 03:00 03/24/19 23:00 99
[2019-03-25] MEDS: FLUTICASONE PROPIONATE NA SPR 16 GM BTL NAE SCH ×2 (08:57→21:42)
[2019-03-25] MEDS: LORATADINE 10 MG TAB PO SCH (08:57)
--- NOTE | 2019-03-25 10:59 | Fluoroscopy Report ---
FLUOROSCOPICALLY GUIDED LUMBAR PUNCTURE CLINICAL HISTORY: fever, headache FLUOROSCOPY TIME: 0.1 minute. A single fluoroscopic spot image of the lumbar spine. PROCEDURE: The procedure, risks and benefits were discussed with the patient including the risk of s patrice headache, bleeding and infection. The patient agreed to the procedure and informed written cons ent was obtained. The procedure was performed by Dr. Baez following a timeout. The left L5-S1 in terlaminar space was targeted. Skin overlying the space was prepped and draped in the usual sterile f ashion and local anesthesia was achieved with 1% lidocaine. Under intermittent fluoroscopic guidance, a 20-gauge x 3 1/2 in. Sprotte needle was inserted into the thecal sac. A total of 11cc of clear, co lorless cerebral spinal fluid was obtained and spread amongst 4 vials. The patient tolerated the proc edure well. There were no immediate complications. The specimens were sent to the laboratory at the [facility] of the referring physician. IMPRESSION: Successful fluoroscopic guided lumbar puncture with removal of 11 cc of clear, colorless cerebral spinal fluid. No immediate complications. Opening pressure was 17 cm and closing pressure wa s 14 cm. Electronically signed by: Alejandro Baez M.D. 03/25/2019 10:58 AM
[2019-03-25 11:28] LABS: Appearance CSF Clear; CSF Count Tube # 3
[2019-03-25 11:29] LABS: CSF Xanthrochromic No xanthochromia; Color CSF Colorless; White Blood Cell CSF (A) 1 /uL (0-5); White Blood Cell CSF (B) 0 /uL (0-5)
[2019-03-25] MEDS: ALBUTEROL HFA 8 GM INHALER INH PRN (11:38)
[2019-03-25 11:39] LABS: Appearance Urine Clear (Clear); Bacteria Urine Automated Negative (Negative); Bilirubin Urine Negative (Negative); Blood Urine Trace (Negative); Color Urine Yellow; Glucose Urine UA Negative (Negative); Ketones Urine 2+ (Negative); Leukocyte Esterase Urine Negative (Negative); Nitrite Urine Negative (Negative); Protein Urine Negative (Negative); Specific Gravity Urine 1.019 (1.000-1.030); Urobilinogen Urine Negative (Negative)
[2019-03-25] MEDS: FAMOTIDINE 20 MG in SYRINGE 3 ML IV SCH ×2 (11:41→21:43)
[2019-03-25] MEDS: cefTRIAXone SODIUM 2,000 MG in DEXTROSE 5% 50 ML IV SCH ×2 (12:23→21:41)
[2019-03-25] MEDS: VANCOMYCIN HCL 1,250 MG in SODIUM CHLORIDE 0.9% 250 ML IV SCH ×2 (12:59→19:43)
--- NOTE | 2019-03-25 13:24 | Infectious Disease Progress Nt ---
Date of Service March 25, 2019 Assessment & Plan (1) Headache: no evidence on LP to suggest meningitis. afebrile. If cultures negative and remains clinically stable, would maintain doxy po x 28 days for emperic treatment of tick borne illness, lyme and anasplasma pending. Subjective pt seen in followup, s/p LP earlier today, tolerated today. SMITH better today, no f/c. LP with clear, colorless fluid, 1 wbc only, culture pending, gram stain ne gative. family at bedside. remains on multiple abx, tolerating well. wbc 4.8. AST mildly elevated at 46, perph smear pending. crypto antigen negative, lyme pcr penidng, lyme wb blot pending. denies visual change, no f/c. no neck stiffness, smith resolved, no cp, sob, cough, no n/v/d/abd pain. min tightness in left 3rd toe, no pain, no drainge. Review of Systems Review of Systems: All systems reviewed & are unremarkable except as noted in HPI & below Physical Exam Constitutional: WD/WN, vitals as above Eyes: PERRL, conjunctivae normal, anicteric sclerae ENMT: external ear and nose normal, oropharynx normal Neck: normal visual inspection Respiratory: normal respiratory effort, lungs clear to auscultation Cardiovascular: RRR, no murmur, no edema Gastrointestinal (Abdomen): normal bowel sounds, soft, nontender, no hepatosplenomegaly Musculoskeletal: no cyanosis or clubbing, extremities motor strength 5/5 Skin: no rashes, warm and dry Psychiatric: A+Ox3, euthymic affect Results & Data Vital Signs (Past 12 Hours) Vital Signs Temp Pulse Pulse Resp BP BP Pulse Ox 03/25/19 11:00 36.9 C 53 L 21 135/89 95 03/25/19 07:29 48 L 03/25/19 06:57 36.5 C 48 L 18 161/83 H 98 03/25/19 04:00 36.6 C 55 L 18 159/88 H 98 03/25/19 03:00 57 L Laboratory Results Microbiology 03/25/19 10:45 Cerebral Spinal Fluid Gram Stain - Final 03/25/19 10:45 Cerebral Spinal Fluid Cryptococcal Antigen - Final 03/24/19 09:07 Blood Aerobic Blood Culture - Preliminary No growth in Aerobic bottle after 24 hours. 03/24/19 09:07 Blood Anaerobic Blood Culture - Preliminary No growth in Anaerobic bottle after 24 hours. 03/24/19 09:30 Blood Aerobic Blood Culture - Preliminary No growth in Aerobic bottle after 24 hours. 03/24/19 09:30 Blood Anaerobic Blood Culture - Preliminary No growth in Anaerobic bottle after 24 hours.
--- NOTE | 2019-03-25 16:05 | Communication Note ---
Date of Service: March 25, 2019 Buck was in the bathroom taking a shower today we made rounds but his mother was present in room and reported that his headaches are virtually gone and the infectious disease moving consultant agreed with this. He had an essentially normal CSF with the exception of one white cell and slightly elevated protein and this is highly nonspecific but could occur I suppose in a partially treated meningitis. This man has been on oral antibiotics on an outpatient basis and received at least one ceftriaxone injection prior to the performance of lumbar puncture MRI scanning has been negative and the diagnosis remains unestablished at this point but infectious disease continue antibiotics and is going to be following up on the cultures and the Lyme titer will need repeat the check on the Western blot pattern He and his mother of insisted he is never had migraines nor is her family history for same so while elements of this suggestive acute migraine headache with the first event in a man of his age which is a bit unusual He is responded either to tincture of time, continue narcotics, or perhaps her Depakote and go to recommend we continue the Depakote for now, check him tomorrow, reviewed how things have gone and then try to establish a policy about how long he needs to take the medication and what if any neurologic follow-up he is going to require Micheal Burr MD
[2019-03-25] MEDS: LACTOBACILLUS ACIDOPHILUS (FLORANEX) TAB PO SCH (22:48)
[2019-03-26] MEDS: ALBUTEROL HFA 8 GM INHALER INH PRN
[2019-03-26] MEDS: VALPROATE SOD 500 MG in DEXTROSE 5% 50 ML IV SCH ×2 (01:38→09:06)
[2019-03-26] MEDS: VANCOMYCIN HCL 1,250 MG in SODIUM CHLORIDE 0.9% 250 ML IV SCH (04:19)
[2019-03-26] MEDS: AMPICILLIN/SULBACTAM SOD 3,000 MG in 0.9 % SODIUM CHLORIDE 100 ML IV SCH ×2 (05:35)
[2019-03-26] MEDS: ACETAMINOPHEN 325 MG TAB PO PRN (06:35)
[2019-03-26 08:13] LABS: Hematocrit (blood only) 38.1 % (42-52); Hemoglobin 13.6 g/dL (14.0-18.0); Mean Corpuscular Hgb Conc 35.7 g/dL (32-36); Mean Corpuscular Volume 83.6 fL (80-100); Mean Platelet Volume 11.2 fL (7.4-10.4); Platelet Count 141 K/uL (130-400); RDW Coefficient of Variation 12.7 % (11.5-14.5); RDW Standard Deviation 38.5 fL (36.4-46.3); Red Blood Count 4.56 M/uL (4.7-6.1); White Blood Count 4.61 K/uL (4.8-10.8)
[2019-03-26 08:32] LABS: Basophils # (auto) 0.05 K/uL (0-0.2); Basophils % (auto) 1.1 %; Eosinophils % (auto) 4.3 %; Giant Platelets 1+; Immature Granulocytes # (auto) 0.01 K/uL (0.00-0.02); Immature Granulocytes % (auto) 0.2 %; Lymphocytes # (auto) 2.51 K/uL (1.2-3.4); Lymphocytes % (auto) 54.4 %; Monocytes # (auto) 0.41 K/uL (0.11-0.59); Monocytes % (auto) 8.9 %; Neutrophils # (auto) 1.43 K/uL (1.4-6.5); Neutrophils % (auto) 31.1 %
[2019-03-26] MEDS: FAMOTIDINE 20 MG in SYRINGE 3 ML IV SCH (08:32)
[2019-03-26] MEDS: OXYMETAZOLINE 0.05% 30 ML BTL SCH (08:33)
[2019-03-26] MEDS: FLUTICASONE PROPIONATE NA SPR 16 GM BTL NAE SCH (08:34)
[2019-03-26] MEDS: LACTOBACILLUS ACIDOPHILUS (FLORANEX) TAB PO SCH (08:34)
[2019-03-26] MEDS: LORATADINE 10 MG TAB PO SCH (08:34)
[2019-03-26] MEDS: DOXYCYCLINE HYCLATE 100 MG CAP PO SCH (08:35)
[2019-03-26 08:42] LABS: BUN Creatinine Ratio 17.6 (10-20); Creatinine Clr Calc Pharmacy 115.2 ml/min; Est GFR (African American) 122.2; Est GFR (Non-African American) 105.5; Potassium 3.8 mmol/L (3.5-5.1)
[2019-03-26 09:38] LABS: 18KDIGG Band NONREACTIVE (NONREACTIVE); 23KDIGG Band NONREACTIVE (NONREACTIVE); 23KDIGM Band REACTIVE (NONREACTIVE); 28KDIGG Band NONREACTIVE (NONREACTIVE); 30KDIGG Band NONREACTIVE (NONREACTIVE); 39KDIGG Band NONREACTIVE (NONREACTIVE); 39KDIGM Band REACTIVE (NONREACTIVE); 41KDIGG Band REACTIVE (NONREACTIVE); 41KDIGM Band NONREACTIVE (NONREACTIVE); 45KDIGG Band NONREACTIVE (NONREACTIVE); 58KDIGG Band NONREACTIVE (NONREACTIVE); 66KDIGG Band REACTIVE (NONREACTIVE); 93KDIGG Band NONREACTIVE (NONREACTIVE); Lyme Antibodies, WB IgG NEGATIVE (NEGATIVE); Lyme Antibodies, WB IgM POSITIVE (NEGATIVE)
[2019-03-26] MEDS: cefTRIAXone SODIUM 2,000 MG in DEXTROSE 5% 50 ML IV SCH (10:12)
--- NOTE | 2019-03-26 10:32 | Hospitalist Progress Note ---
Date of Service March 26, 2019 Assessment & Plan (1) Fever: Febrile illness with associated headache. Recent tick bite. Presumed Lymes Lyme IgM , IgG screen +. Western blot neg -S/P LP on 03/25/2019- Negative for meningitis -Discontinue IV ceftriaxone and doxycycline as no meningitis -On IV Depakote 500 mg x 8 doses to break headache (for possible vascular component per neurology) -Work up- CT head- neg, PS negative for anaplasmosis -Neurology and ID on board- Appreciate inputs PLAN: As patient had a recent tick bite, Lymes Ig G, M positive, will treat as presumed Lymes though Western Blot came back negative. Doxycycline x 28 days per d.w ID. Pending- CSF Lymes, fungal, AFB, cultures- Follow up outpatient -F/up Anaplasmosis PCR outpatient but management wont change as already treating with doxycycline (2) Thrombocytopenia: -Probably secondary to infectious process -Anaplasmosis Peripheral smear test- neg, DNA test pending -Resolved (3) Sinusitis: ENT consulted because of right ear pain. No apparent infection or foreign body. Sinusitis noted on MRI scan - No mastoiditis. -Doxycycline as above should cover sinusitis -ENT recommends post treatment fusion CT scan of sinuses in 1 month and follow up outpatient with him (Dr Clayton) after that (4) DVT prophylaxis: -SCD's ordered. -Ambulate. (5) Discharge planning issues: -Anticipated discharge to home. -Family Medicine follow-up with Dr. Hernesto Pineda. -ENT follow-up with Dr. Clayton. Very eager to be discharged Discussed with [facility] for discharge Okay to discharge home today Subjective Patient is feeling much better today. Headache has resolved since yesterday. No neck stiffness, fever, chills. No nausea, vomiting, abdominal pain, chest pain, shortness of breath, cough. No rash Status post lumbar puncture yesterday which was negative for meningitis Physical Exam Physical Exam: Constitutional WD/WN, vitals as above Eyes PERRL, conjunctivae normal, anicteric sclerae Neck No neck rigidity Respiratory normal respiratory effort, lungs clear to auscultation Cardiovascular RRR, no murmur, no edema Gastrointestinal (Abdomen) normal bowel sounds, soft, nontender, no hepatosplenomegaly Neurologic PERRL, EOMI, accommodation nl, no face palsy, no dysarthria CN's II-XI intact bilaterally and moves all extremities; no focal motor deficits Results & Data Vital Signs (Past 12 Hours) Vital Signs Temp Pulse Pulse Resp BP Pulse Ox 03/26/19 07:36 50 L 03/26/19 07:18 36.7 C 48 L 18 144/84 H 97 03/26/19 04:47 36.8 C 50 L 16 155/84 H 98 03/26/19 02:03 54 L 03/25/19 23:27 37.1 C 52 L 20 146/89 H 98
--- NOTE | 2019-03-26 10:43 | Discharge Summary ---
Date of Service March 26, 2019 Admission HPI Per Admitting Provider HISTORY OF PRESENT ILLNESS: This is a 44-year-old male with past medical history significant for asthma, moderate, persistent, history of thrush in the past, was transferred from the [facility] because of severe headache. The patient noticed since last Saturday evening he was having severe headaches. He went to the [facility] 3 times since then. In the shower,on Saturday he noticed he thought a bug bite on his left third toe. There was some whitish head on it, he tried to drain it, but nothing came out and says since then he is having severe headache. He thought at home he had temperature of 103, but he took Tylenol and went to [place] and the temperature was 99. Initially, they gave pain medication and it helped and he went home, and within a few hours, he went back to the hospital again. At that time, CT of the head was done which was unremarkable. Labs were unremarkable. He was sent back home on po antibiotics.. Last night again, he went back to the [facility] with same complaints. There was no neck stiffness, no pain in the neck. But having severe right ear pain.Again, a CT of the head with contrast was done which was unremarkable.He also complains of some epigastric abdominal pain. CT of the abdomen and pelvis was also done which were unremarkable. Lactic acid was normal. Temperature was 99. Vitals were stable. All the labs were unremarkable, so at that time they thought he needs neurology evaluation and he was sent to [facility]. The patient has a severe headache and has photophobia, nausea and epigastric abdominal discomfort. Denies any cough, no blurred vision, has right earache, no runny nose, no sore throat, no difficulty swallowing. Appetite is not good since last 1 or 2 days. No diarrhea, no constipation, no blood in the stools, no black stools. No burning micturition, no hematuria, no swelling in the legs. He has very mild erythematous change in the left third toe. Requesting for pain medications. Neck is supple. He says this year, he has 3 tick bites. Last was 1 month ago. At that time, he checked for Lyme, it was negative. He says Lyme screen was done in the [facility], but the results were not back. Principal Diagnosis 1. Fever/Headache, possible Lymes disease 2. Thrombocytopenia, resolved 3. Sinusitis Discharge Exam Constitutional WD/WN, vitals as above Eyes PERRL, conjunctivae normal, anicteric sclerae Neck No neck rigidity Respiratory normal respiratory effort, lungs clear to auscultation Cardiovascular RRR, no murmur, no edema Gastrointestinal (Abdomen) normal bowel sounds, soft, nontender, no hepatosplenomegaly Neurologic PERRL, EOMI, accommodation nl, no face palsy, no dysarthria CN's II-XI intact bilaterally and moves all extremities; no focal motor deficits Discharge Data Allergies Allergy/AdvReac Type Severity Reaction Status Date / Time No Known Drug Allergies Allergy n/a Verified 02/03/19 08:20 Consultations 03/24/19 06:05 Consult Neurology Routine 03/24/19 07:23 Consult Otolaryngology (Head and Neck) Routine 03/24/19 14:11 Consult Infectious Diseases Routine Ordered Studies 03/24/19 06:05 MR angio head wo con Urgent MR brain wo/w con Urgent 03/25/19 10:30 FL lumbar puncture diagnostic Urgent Hospital Course (1) Fever: Febrile illness with associated headache. Recent tick bite. Presumed Lymes Lyme IgM , IgG screen +. Western blot neg -S/P LP on 03/25/2019- Negative for meningitis -Discontinue IV ceftriaxone and doxycycline as no meningitis -On IV Depakote 500 mg x 8 doses to break headache (for possible vascular component per neurology) -Work up- CT head- neg, PS negative for anaplasmosis -Neurology and ID on board- Appreciate inputs PLAN: As patient had a recent tick bite, Lymes Ig G, M positive, will treat as presumed Lymes though Western Blot came back negative. Doxycycline x 28 days per d.w ID. Pending- CSF Lymes, fungal, AFB, cultures- Follow up outpatient -F/up Anaplasmosis PCR outpatient but management wont change as already treating with doxycycline (2) Thrombocytopenia: -Probably secondary to infectious process -Anaplasmosis Peripheral smear test- neg, DNA test pending -Resolved (3) Sinusitis: ENT consulted because of right ear pain. No apparent infection or foreign body. Sinusitis noted on MRI scan - No mastoiditis. -On Doxycycline as above- should cover sinusitis. --ENT recommends post treatment fusion CT scan of sinuses in 1 month and follow up outpatient with him (Dr Clayton) after that (4) DVT prophylaxis: -SCD's ordered. -Ambulate. (5) Discharge planning issues: -Anticipated discharge to home. -Family Medicine follow-up with Dr. Hernesto Pineda. -ENT follow-up with Dr. Clayton. Very eager to be discharged Discussed with [facility] for discharge Okay to discharge home today Total Time Total Time Spent Total Time Spent (In Minutes): 35 MINUTES Discharge Plan Discharge Items Patient Disposition: Home - Self-Care Reason For Visit: INTRACTABLE HEADACHE Discharge Diagnosis: Fever and headache, possible lymes disease Discharge Goals: Decrease discomfort Activity: Resume your previous activity Non-emergency contact: Primary Care Provider Call non-emergency contact if: your symptoms worsen Follow-up/Referrals: Hernesto Pineda, DO [Primary Care Provider] - Diet: Regular Addtl Provider Instructions: MEDICATION CHANGES NEW MEDICATION- Doxycycline 100 mg PO twice a day for [address] scan sinuses after a month prior to ENT follow up visit Prescriptions: New doxycycline hyclate 100 mg Capsule 100 mg PO BID 28 Days Qty: 56 RF: 0 Continued albuterol sulfate 90 mcg/actuation Hfa Aerosol Inhaler 2 puff INHALATION Q6H PRN (Reason: Wheezing) RF: 0 Breo Ellipta 1 puff 1 puff inhalation DAILY RF: 0 Claritin 10 mg 10 mg PO DAILY RF: 0 Flonase Allergy Relief 1 spray 1 spray NA DAILY RF: 0 Stand-Alone Forms: [facility] Discharge Orders: Discharge Order (Routine); Ordered 03/26/19 Ordered By: Navya Concepcion Admission Data Admit Date/Time: 03/24/19 04:42 Attending Provider: Navya Concepcion Admit Provider: Wesley Koroma Primary Care Provider: Hernesto Pineda Other Providers: Huong Shell ; Micheal Burr ; Huong Hsu ; Richie Hwang ; Wesley Koroma ; Viviana Rdz ; Mahin Prescott Service: Telemetry Medical
[2019-03-26] MEDS ORDERED: VANCOMYCIN TROUGH ONE (11:30)
[2019-04-01 08:16] LABS: Lyme DNA Source CSF; Lyme IgG CSF NO BANDS DETECTED; Lyme IgM CSF NO BANDS DETECTED; VDRL Qualitative CSF Nonreactive (Nonreactive)
== END 2019-03-26 12:15 | disposition home or self-care (01) | DRG 869 ==
LOC: 2W 04:42 → SUATTDRO 04:42